=== PATIENT | male | born 2000 | race Caucasian/White ===

== ENCOUNTER 2020-07-19 17:18 | Outpatient (CLI) | payer OTHER, SELFPAY | END 2020-07-19 17:19 | disposition home or self-care (01) | LOC: ANHCOVIDVC 17:18 | PROVIDERS: PCP Family Medicine | DX: Z23 Encounter for immunization (principal) | CPT/HCPCS: 0001A; 91300 ==

== ENCOUNTER 2020-08-09 17:11 | Outpatient (CLI) | payer OTHER, SELFPAY | END 2020-08-09 17:12 | disposition home or self-care (01) | LOC: ANHCOVIDVC 17:12 | PROVIDERS: PCP Family Medicine | DX: Z23 Encounter for immunization (principal) | CPT/HCPCS: 0002A; 91300 ==

== ENCOUNTER 2021-04-25 10:22 | Emergency (ER) | payer OTHER, SELFPAY ==
[2021-04-25 11:19] VITALS: BP 130/78; PULSE 87; RESP 18; TEMP 37.1; O2SAT 100
--- NOTE | 2021-04-25 11:43 | ED.URI ---
HPI - URI/Sore Throat General Chief Complaint: Upper Respiratory Infection Stated Complaint: Lt ear pain,cough Time Seen by Provider: 04/25/21 11:40 Source: patient, family and RN notes reviewed Mode of arrival: ambulatory Limitations: no limitations History of Present Illness HPI Narrative: Roly is a 21-year-old male patient who ambulated into the [facility]. Patient complains of left earache and cough for greater than 1 month. Patient states he was put on a round of antibiotics for 10 days from his primary care physician and did get better. Patient states in the last couple of days his left ear is hurting and when he wakes up in the morning he is coughing. Patient denies any temperature patient denies any other symptoms. Patient states he has not been using any [id number] medications. MD elicited complaint: cough and nasal congestion Related Data Home Medications Medication Instructions Recorded Confirmed aripiprazole 10 mg DAILY 04/25/21 04/25/21 bupropion HCl 150 mg PO DAILY 04/25/21 04/25/21 methylphenidate HCl [Concerta] 36 mg PO DAILY 04/25/21 04/25/21 Allergies Allergy/AdvReac Type Severity Reaction Status Date / Time milk Allergy Verified 04/25/21 11:53 Review of Systems Review of Systems: CONSTITUTIONAL: Denies body aches, fever, chills, or sweats. EYES: Denies visual changes, redness, or discharge. ENT: Denies rhinorrhea, +congestion, sore throat, + left otalgia. CARDIOVASCULAR: Denies chest pain, palpitations, or edema. RESPIRATORY: Denies dyspnea.+ cough GASTROINTESTINAL: Denies abdominal pain, nausea, vomiting, or diarrhea. GENITOURINARY: Denies dysuria or hematuria. SKIN: Denies rash, itching, or wounds. MUSCULOSKELETAL: Denies back pain, joint pain, or myalgia. NEUROLOGIC: Denies headache, numbness, tingling, or weakness. PSYCH: Denies depression or anxiety. All systems reviewed & are unremarkable except as noted in HPI and below PMFSH Comments At time of signature, I have reviewed and agree with nursing past medical, surgical, social and family history unless otherwise noted. Please see nursing chart for further information. There is no relevant family history pertinent to the presenting complaint Exam Narrative: GENERAL: Well-appearing, well-nourished, and in no acute distress. HEAD: Normocephalic, atraumatic. EYES: EOMI. No redness or drainage. Conjunctivae normal. ENT: Mucous membranes pink and moist. Nares clear. No rhinorrhea. Bilateral tympanic membranes are dull and fluid filled. No erythema is noted posterior pharynx is erythemic with mild postnasal drainage noted Uvula midline. NECK: Normal AROM. Supple. No lymphadenopathy. CHEST: No respiratory distress. Clear to auscultation. MUSCULOSKELETAL: No bony tenderness. EXTREMITIES: Normal range of motion. No edema. SKIN: Warm, dry, no rash. Capillary refill normal. Normal skin turgor. NEURO: No focal deficits. Alert and oriented x3. Gait steady. PSYCH: Normal affect. No signs of depression or anxiety. Course Vital Signs Vital signs: Vital Signs Temperature 37.1 C 04/25/21 11:19 Pulse Rate 87 04/25/21 11:19 Respiratory Rate 18 04/25/21 11:19 Blood Pressure 130/78 04/25/21 11:19 Pulse Oximetry 100 04/25/21 11:19 Temperature 37.1 C 04/25/21 11:19 Pulse Rate 87 04/25/21 11:19 Respiratory Rate 18 04/25/21 11:19 Blood Pressure 130/78 04/25/21 11:19 Pulse Oximetry 100 04/25/21 11:19 Reviewed. Pt has been instructed to follow up with his PCP regarding his elevated blood pressure today. MDM - URI/Sore Throat MDM Narrative Medical decision making narrative: Patient has had symptoms off and on for 1 month. Patient was recommended to continue their Zyrtec daily for congestion. Patient will be given prednisone for 5 days. And patient will follow up with his primary care physician after the course is complete for further evaluation. Differential Diagnosis Differential diagnosis:
== END 2021-04-25 12:02 | disposition home or self-care (01) ==
PROVIDERS: Emergency Provider Nurse Practitioner Family; PCP Family Medicine
DX: J06.9 Acute upper respiratory infection, unspecified (principal)
CPT/HCPCS: 99211; G0463

== ENCOUNTER 2023-04-01 08:41 | Emergency (ER) | payer OTHER, SELFPAY ==
[2023-04-01 08:50] VITALS: BP 127/80; PULSE 91; RESP 18; TEMP 36.4; O2SAT 98
--- NOTE | 2023-04-01 08:56 | ED.EAR ---
HPI - Ear Problem General Stated complaint: Lt Ear Irritation Time Seen by Provider: 04/01/23 08:55 Source: patient Mode of arrival: ambulatory Limitations: no limitations History of Present Illness HPI Narrative: Elier is a 23-year-old male patient presenting to the clinic today with complaints of left ear discomfort. He reports he has recently been treated for a left ear infection 3 weeks ago and is still having some pressure in his left ear and is concerned if the infection has gone away. He reports finishing his antibiotic but does not recall antibiotic he was taking. Denies any fever or chills. Related Data Home Medications Medication Instructions Recorded Confirmed aripiprazole 10 mg tablet 10 mg DAILY 04/25/21 04/25/21 bupropion HCl 150 mg 24 hr tablet, 150 mg PO DAILY 04/25/21 04/25/21 extended release methylphenidate HCl 36 mg 36 mg PO DAILY 04/25/21 04/25/21 tablet,extended release 24 hr (Concerta) Allergies Allergy/AdvReac Type Severity Reaction Status Date / Time milk Allergy Verified 04/25/21 11:53 Review of Systems Review of Systems: Pertinent positives per HPI. Patient denies any fever, chills, rash, headache, visual changes, dizziness, cough, runny nose, sore throat, shortness of breath, chest pain, palpitations, nausea, vomiting, diarrhea, constipation, abdominal pain, or any urinary issues. PMFSH Comments At the time of my signature, I reviewed and agree with the nursing past medical, surgical, social, and family history. There is no relevant family history pertinent to the patient complaint. Exam Narrative: General: Well-developed, well nourished, in no apparent distress Head: Normocephalic, atraumatic Eyes: Pupils equally round and reactive to light bilaterally, EOM intact, sclera and conjunctive clear, no discharge, lids normal Ears: Right tMs intact and clear, left TM intact, clear, with very mild bulging, ear canals clear, no drainage, grossly hearing normal. Nose: Nares patent, clear discharge, no inflammation, no sinus tenderness. Mouth: Oropharynx without lesions or masses, good dentition, MMM. Neck: Supple, trachea midline, no enlargement of anterior or posterior cervical nodes, no thyroid masses or goiter palpable. Cardio: Regular rate and rhythm, s1 and s2 normal, no murmur appreciated. Resp: Clear to auscultation bilaterally anteriorly and posteriorly, no rhonchi, rales, wheezing or rubs Course Course Emergency Course: Portions of this record may have been created with voice recognition software. Level of Care: Express Care Visit Vital Signs Vital signs: Vital signs reviewed Medical Decision Making MDM Narrative Medical decision making narrative: At the time of visit patient is resting comfortably on the exam table. I suspect patient has eustachian tube dysfunction to the left ear. Discussed using Flonase and [id number] antihistamines. Supportive measures were discussed with the patient he voiced understanding discharge instructions and agrees to treatment plan. Differential Diagnosis Differential Diagnosis: Otitis media, otitis externa, eustachian tube dysfunction, cerumen impaction, Discharge Plan Discharge Clinical Impression: ETD (eustachian tube dysfunction) Qualifiers: Laterality: left Qualified Code(s): H69.92 - Unspecified Eustachian tube disorder, left ear Patient Disposition: Home, Self-Care Condition: Stable Instructions: Antibiotic Form, Earache (ED) Additional Instructions: Ear infection appears to be resolved. Increase fluids and stay well hydrated Tylenol/motrin for pain/fever Flonase and OTC antihistamines such as Zyrtec or Claritin as directed Vicks vapor rub to open sinuses Sinus rinses for congestion Cepacol spray, cough drops, throat lozenges, warm tea with honey/lemon, gargle salt water to soothe throat BRAT diet for diarrhea Clear liquids x 24 hours then advance as tolerated for nausea
== END 2023-04-01 09:09 | disposition home or self-care (01) ==
PROVIDERS: Emergency Provider Nurse Practitioner Family; PCP Family Medicine
DX: H69.92 Unspecified Eustachian tube disorder, left ear (principal)
CPT/HCPCS: 99211; G0463

== ENCOUNTER 2023-06-27 10:35 | Emergency (ER) | payer OTHER, SELFPAY ==
[2023-06-27 10:45] VITALS: BP 131/79; PULSE 80; RESP 16; TEMP 36.6; O2SAT 98
[2023-06-27 10:49] VITALS: BP 131/79; PULSE 80; RESP 16; TEMP 36.6; O2SAT 98
--- NOTE | 2023-06-27 11:12 | ED.BACK ---
HPI - Back Pain/Injury General Chief Complaint: Back Pain/Injury Stated Complaint: Back and Left Hip Pain Time Seen by Provider: 06/27/23 11:12 Source: patient, RN notes reviewed and old records reviewed Mode of arrival: ambulatory Limitations: no limitations History of Present Illness HPI Narrative: 23-year-old male presents to the [facility] complaints left and lower pain for 3 days. Has taken ibuprofen States that he lifts 30 lb dog food Denies any trauma, no falls Denies any loss retention of bowel or. Denies urinary symptoms. Denies abdominal pain. No numbness or tingling in extremities. Walks a Treatments prior to arrival: NSAIDS Related Data Home Medications Medication Instructions Recorded Confirmed aripiprazole 10 mg tablet 10 mg PO HS 04/25/21 06/27/23 bupropion HCl 150 mg 24 hr tablet, 150 mg PO DAILY 04/25/21 06/27/23 extended release buspirone 5 mg tablet 5 mg PO BID 06/27/23 06/27/23 divalproex 250 mg tablet,delayed 250 mg PO DAILY 06/27/23 06/27/23 release Allergies Allergy/AdvReac Type Severity Reaction Status Date / Time milk AdvReac Intermediate Gastrointestinal Verified 06/27/23 10:46 Upset Review of Systems Review of Systems: All systems reviewed & are unremarkable except as noted in HPI and below Constitutional: Constitutional: Reports no additional constitutional complaints Eyes: Eyes: Reports no additional eye complaints ENT: Reports system reviewed and no additional complaints, except as documented Cardiovascular: Cardiovascular: Reports no additional cardiovascular complaints, Denies chest pain and Denies dyspnea Respiratory: Respiratory: Reports no additional respiratory complaints, Denies chest congestion, Denies cough and Denies dyspnea Gastrointestinal: Gastrointestinal: Reports no additional gastrointestinal complaints, Denies abdominal pain, Denies nausea and Denies vomiting Musculoskeletal: Musculoskeletal: Reports as per HPI and Reports back pain (left lower) Integumentary/Breasts: Skin/Breast: Reports system reviewed and no additional complaints, except as docu Neurologic: Reports system reviewed and no additional complaints, except as documented Psychiatric: Psychiatric: Reports no additional psychiatric complaints Allergic/Immunologic: Allergic/Immunologic: Reports no additional allergic/immunologic complaints PMFSH Comments At the time of my signature, I reviewed and agree with the nursing past medical, surgical, social, and family history. There is no relevant family history pertinent to the patient complaint. Exam Const: General: cooperative, healthy appearing, comfortable, no acute distress, well developed, alert and well nourished Nutritional Appearance: well nourished Orientation/consciousness: patient oriented x3 Limitations: no limitations HENMT: Head: normal to inspection Ears: hearing grossly normal bilaterally and external ears normal Face/Nose/Sinus: Normal external nose present, Normal nares present, Normal nasal mucous membranes and turbinates present, normal facial exam and face symmetric Face and sinus: normal facial exam and face symmetric Eyes: General: appearance normal, both eyes and all related structures Alignment and Position: alignment normal Periorbital: periorbital findings normal Pupils: Equal, round and reactive pupils present EOM: EOMs intact bilaterally Neck: Neck: normal visual inspection, full ROM, no lymphadenopathy and no meningeal signs Chest: Chest palpation & inspection: normal inspection of the chest Resp: Effort & Inspection: normal respiratory effort and able to speak in complete sentences Cardio: Rate: regular rate GI: GI Palp: No abdominal tenderness : General: Yes no CVA tenderness Back/Spine/Pelvis: Back: No erythema, No ecchymosis and back tenderness Cervical Spine: cervical ROM normal, No cervical muscular tenderness and No Cervical spine tenderness Thoracic/Lumbar Spine: paraspinal muscle t
== END 2023-06-27 11:32 | disposition home or self-care (01) ==
PROVIDERS: Emergency Provider Nurse Practitioner
DX: S39.012A Strain of muscle, fascia and tendon of lower back, initial encounter (principal); X50.0XXA Overexertion from strenuous movement or load, initial encounter; F41.9 Anxiety disorder, unspecified; F32.A Depression, unspecified
CPT/HCPCS: 99213; G0463

== ENCOUNTER 2023-07-31 09:14 | Emergency (ER) | payer OTHER, SELFPAY ==
--- NOTE | 2023-07-31 09:18 | ED.URI ---
HPI - URI/Sore Throat General Chief Complaint: Upper Respiratory Infection Stated Complaint: cough,chest congestion Time Seen by Provider: 07/31/23 10:05 Source: patient, RN notes reviewed and old records reviewed Mode of arrival: ambulatory Limitations: no limitations History of Present Illness HPI Narrative: 23-year-old male presents to the [facility] with complaints cough for approximately 1 and half weeks. Has tried DayQuil and NyQuil. Denies any other symptoms. Denies fevers, chest pain, shortness Onset (ago): week(s) (1.5) Related Data Home Medications Medication Instructions Recorded Confirmed aripiprazole 10 mg tablet 10 mg PO HS 04/25/21 06/27/23 divalproex 250 mg tablet,delayed 250 mg PO DAILY 06/27/23 06/27/23 release cyanocobalamin (vitamin B-12) mcg 07/31/23 1,000 mcg tablet lumateperone 42 mg capsule mg PO 07/31/23 (Caplyta) Allergies Allergy/AdvReac Type Severity Reaction Status Date / Time milk AdvReac Intermediate Gastrointestinal Verified 07/31/23 09:47 Upset Review of Systems Review of Systems: All systems reviewed & are unremarkable except as noted in HPI and below Constitutional: Constitutional: Reports no additional constitutional complaints Eyes: Eyes: Reports no additional eye complaints ENT: Reports system reviewed and no additional complaints, except as documented Cardiovascular: Cardiovascular: Reports no additional cardiovascular complaints, Denies chest pain and Denies dyspnea Respiratory: Respiratory: Reports as per HPI, Denies chest congestion, Reports cough and Denies dyspnea Gastrointestinal: Gastrointestinal: Reports no additional gastrointestinal complaints, Denies abdominal pain, Denies nausea and Denies vomiting Musculoskeletal: Musculoskeletal: Reports no additional musculoskeletal complaints Integumentary/Breasts: Skin/Breast: Reports system reviewed and no additional complaints, except as docu Neurologic: Reports system reviewed and no additional complaints, except as documented Psychiatric: Psychiatric: Reports no additional psychiatric complaints Allergic/Immunologic: Allergic/Immunologic: Reports no additional allergic/immunologic complaints PMFSH Comments At the time of my signature, I reviewed and agree with the nursing past medical, surgical, social, and family history. There is no relevant family history pertinent to the patient complaint. Exam Const: General: cooperative, healthy appearing, comfortable, no acute distress, well developed, alert and well nourished Nutritional Appearance: well nourished Orientation/consciousness: patient oriented x3 Limitations: no limitations HENMT: Head: normal to inspection Ears: hearing grossly normal bilaterally, external ears normal, TM's normal bilaterally, EAC's normal, mastoids normal and no periauricular adenopathy Face/Nose/Sinus: Normal external nose present, Normal nares present, Normal nasal mucous membranes and turbinates present, normal facial exam and face symmetric Face and sinus: normal facial exam and face symmetric Mouth: Yes Normal oral and palatal mucosa present, Yes lip normal and Yes moist mucous membranes Throat: posterior oropharynx normal, uvula midline and postnasal drainage (thick white/ clear) Eyes: General: appearance normal, both eyes and all related structures Alignment and Position: alignment normal Periorbital: periorbital findings normal Pupils: Equal, round and reactive pupils present EOM: EOMs intact bilaterally Neck: Neck: normal visual inspection, full ROM, no lymphadenopathy and no meningeal signs Chest: Chest palpation & inspection: normal inspection of the chest Resp: Effort & Inspection: normal respiratory effort and able to speak in complete sentences Auscultation: clear to auscultation bilaterally, no crackles, no rales, no rhonchi and no wheezes Cardio: Rate: regular rate Rhythm: regular rhythm Back/Spine/Pelvis: Cervical Spine: cervical ROM normal
[2023-07-31 09:27] VITALS: BP 119/74; PULSE 87; RESP 18; TEMP 36.6; O2SAT 97
== END 2023-07-31 10:22 | disposition home or self-care (01) ==
PROVIDERS: Emergency Provider Nurse Practitioner; PCP Family Medicine
DX: R09.82 Postnasal drip (principal); J06.9 Acute upper respiratory infection, unspecified
CPT/HCPCS: 99211; G0463

== ENCOUNTER 2023-10-21 19:28 | Emergency (ER) | payer OTHER, SELFPAY ==
[2023-10-21 19:36] VITALS: BP 147/71; PULSE 73; RESP 20; TEMP 36.3; O2SAT 99
--- NOTE | 2023-10-21 19:37 | ED.SKABFB ---
HPI - Skin/Abscess/Foreign Bdy General Chief complaint: Skin/Abscess/Foreign Body Stated complaint: POISON DARON Time Seen by Provider: 10/21/23 19:38 Source: patient, RN notes reviewed and old records reviewed Mode of arrival: ambulatory Limitations: no limitations History of Present Illness HPI narrative: 23 year old male presents to [facility] care with complaints of poison daron rash for the past 2 weeks with rash noted to his bilateral arms and his legs. patient reports that he has used special soap for poison daron and also has used Caladryl lotion without resolution in his symptoms. Patient reports that his rash continues to be very itchy. Patient denies any difficulty with his breathing or with his swallowing. MD complaint: other (exposure to poison Daron) Onset (ago): week(s) (2) Location: LUE, RUE, LLE and RLE Quality: pruritic Treatments prior to arrival: OTC topical medication and other (special soap for poison daron) Related Data Home Medications Medication Instructions Recorded Confirmed divalproex 250 mg tablet,delayed 250 mg PO DAILY 06/27/23 10/21/23 release cyanocobalamin (vitamin B-12) 1,000 mcg PO DAILY 07/31/23 10/21/23 1,000 mcg tablet aripiprazole 20 mg tablet 20 mg PO DAILY 10/21/23 10/21/23 bupropion HCl 150 mg 24 hr tablet, 150 mg PO DAILY 10/21/23 10/21/23 extended release buspirone 5 mg tablet 5 mg PO DAILY 10/21/23 10/21/23 lumateperone 42 mg capsule 42 mg PO DAILY 10/21/23 10/21/23 (Caplyta) Allergies Allergy/AdvReac Type Severity Reaction Status Date / Time milk AdvReac Intermediate Gastrointestinal Verified 10/21/23 19:45 Upset Review of Systems Review of Systems: CONSTITUTIONAL: Denies fever, chills, or sweats. CARDIOVASCULAR: Denies chest pain, palpitations, or edema. RESPIRATORY: Denies cough or dyspnea. SKIN: Reports rash and itching to legs and arms for 2 week duration MUSCULOSKELETAL: Denies joint pain or myalgia. NEUROLOGIC: Denies headache, numbness, or weakness. All systems reviewed & are unremarkable except as noted in HPI and below PMFSH Past Medical History Medical History Anxiety and depression Bronchitis Lactose intolerance Social History Social History Smoking status: Never smoker Alcohol intake: never Substance use: never Living arrangements: with family Gender identity (if verbalized by the patient): Male Comments At time of signature, agree with nursing past medical, surgical, social and family history. There is no relevant family history pertinent to the presenting complaint Exam Narrative: GENERAL: Well-appearing, well-nourished, and in no acute distress. HEAD: Normocephalic, atraumatic. EYES: PERRLA, conjunctivae clear, and EOMI. ENT: Mucous membranes moist. Oropharynx without edema, erythema or lesions. NECK: Supple. No lymphadenopathy CHEST: Clear to auscultation. No respiratory distress.SAO2 99% on room air HEART: Regular rate and rhythm. SKIN: Warm, dry.? Patches of erythema and edema with red raised rash noted to his bilateral forearms and legs which is itchy with no improvement with use of OTC medications NEURO:? Alert and oriented x3. PSYCH: Normal mood and affect Course Course Emergency Course: Patient is aware of diagnosis, understands and agrees to treatment plan.? Anticipatory guidance given.? Patient agrees to follow-up as directed and is aware of reasons to seek care at the emergency department. Portions of this record may have been created with voice recognition software Level of Care: Express Care Visit Vital Signs Vital signs: Vital Signs Temperature 36.3 C L 10/21/23 19:36 Pulse Rate 73 10/21/23 19:36 Respiratory Rate 20 10/21/23 19:36 Blood Pressure 147/71 H 10/21/23 19:36 Pulse Oximetry 99 10/21/23 19:36 Oxygen Delivery Room Air 10/21/23 19:36 [place]
== END 2023-10-21 19:55 | disposition home or self-care (01) ==
PROVIDERS: Emergency Provider Registered Nurse; PCP Family Medicine
DX: L25.5 Unspecified contact dermatitis due to plants, except food (principal); F41.9 Anxiety disorder, unspecified; F32.A Depression, unspecified
CPT/HCPCS: 99213; G0463

== ENCOUNTER 2023-11-25 08:20 | Emergency (ER) | payer OTHER, SELFPAY ==
--- NOTE | 2023-11-25 08:25 | ED.GENADULT ---
HPI - General Adult General Chief complaint: Upper Respiratory Infection Stated complaint: coughing + vomiting Time Seen by Provider: 11/25/23 08:25 Source: patient, RN notes reviewed and old records reviewed Mode of arrival: ambulatory Limitations: no limitations History of Present Illness HPI narrative: 23-year-old male to Express Care for complaint of cough, postnasal drainage and vomiting for approximately 2 weeks. Patient states that symptoms initially began as a sore throat that has resolved. Patient states his cough has been productive 1 time with yellow to green sputum. Patient states he believes that the vomiting is due to the postnasal drainage. Patient denies fever, abdominal pain, diarrhea, constipation, sore throat, headache , shortness of breath, chest pain. Patient able to tolerate fluids by mouth. Patient endorses recent discharge from [facility] for suicidal ideation. Patient states that he is going into residential and would like to get better before going. Patient denies SI or HI at this time. Respirations even and nonlabored. Patient able to speak in full sentences without difficulty. Patient in no acute distress Related Data Home Medications Medication Instructions Recorded Confirmed aripiprazole 20 mg tablet 15 mg PO DAILY 10/21/23 10/21/23 cetirizine 10 mg tablet mg 11/25/23 fluticasone propionate 50 intranasal 11/25/23 mcg/actuation nasal spray,suspension Allergies Allergy/AdvReac Type Severity Reaction Status Date / Time milk AdvReac Intermediate Gastrointestinal Verified 11/25/23 08:32 Upset Review of Systems Review of Systems: All systems reviewed & are unremarkable except as noted in HPI and below Constitutional: Constitutional: Reports as per HPI, Denies body ache(s), Denies chills and Denies fever(s) Eyes: Eyes: Reports no additional eye complaints ENT: Reports system reviewed and no additional complaints, except as documented Cardiovascular: Cardiovascular: Reports no additional cardiovascular complaints, Denies chest pain and Denies dyspnea Respiratory: Respiratory: Reports no additional respiratory complaints, Reports cough and Denies dyspnea Gastrointestinal: Gastrointestinal: Reports as per HPI, Reports nausea and Reports vomiting Musculoskeletal: Musculoskeletal: Reports no additional musculoskeletal complaints Neurologic: Reports system reviewed and no additional complaints, except as documented Psychiatric: Psychiatric: Reports no additional psychiatric complaints PMFSH Past Medical History Medical History Anxiety and depression Bronchitis Lactose intolerance Social History Social History Smoking status: Never smoker Alcohol intake: never Substance use: never Living arrangements: with family Gender identity (if verbalized by the patient): Male Comments At the time of my signature, I reviewed and agree with the nursing past medical, surgical, social, and family history. There is no relevant family history pertinent to the patient complaint. Exam Const: General: cooperative, no acute distress, alert, tired appearing and well nourished Nutritional Appearance: well nourished Orientation/consciousness: patient oriented x3 Limitations: no limitations HENMT: Head: normal to inspection Ears: external ears normal and TM abnormal bulging on the left, erythematous on the left, with fluid behind the TM bilateral and with loss of landmarks on the left Face/Nose/Sinus: Normal external nose present, Normal nares present, normal facial exam, No erythema and No edema Face and sinus: normal facial exam, no erythema and no edema Mouth: Yes Normal oral and palatal mucosa present Throat: posterior oropharynx abnormal erythema and postnasal drainage Eyes: General: appearance normal, both eyes and all related structures Neck:
[2023-11-25 08:31] VITALS: BP 127/72; PULSE 68; RESP 18; TEMP 36.4; O2SAT 98
[2023-11-25 08:33] VITALS: BP 127/72; PULSE 68; RESP 18; TEMP 36.4; O2SAT 98
== END 2023-11-25 08:49 | disposition home or self-care (01) ==
PROVIDERS: Emergency Provider Nurse Practitioner Family; PCP Family Medicine
DX: H66.92 Otitis media, unspecified, left ear (principal)
CPT/HCPCS: 99213; G0463

== ENCOUNTER 2024-03-31 08:39 | Emergency (ER) | payer OTHER, SELFPAY ==
--- NOTE | 2024-03-31 08:41 | ED_ITS ---
HPI - Back Pain/Injury General Chief Complaint: Back Pain/Injury Stated Complaint: Lower Back Pain Time Seen by Provider: 03/31/24 08:40 Source: patient Mode of arrival: ambulatory Limitations: no limitations History of Present Illness HPI Narrative: Roly is a 24-year-old male patient presenting to the clinic today with complaints of left-sided upper back pain times 5-7 days. He reports pain is a squeezing/burning sensation to the left upper back that is radiating up into his shoulder as well as in to his left lateral side. Denies any chest pain or shortness of breath. Denies any injury. Does spend a lot of time at a desk typing. Rates his pain currently a 5/10. Pain is worse with movement and when keeping his arm up Related Data Home Medications Medication Instructions Recorded Confirmed aripiprazole 20 mg tablet 15 mg PO DAILY 10/21/23 03/31/24 atorvastatin 40 mg tablet 40 mg DIRECTED 03/31/24 03/31/24 bupropion HCl 150 mg 24 hr tablet, 150 mg PO DIRECTED 03/31/24 03/31/24 extended release (Wellbutrin XL) famotidine 20 mg tablet 20 mg DIRECTED 03/31/24 03/31/24 lithium carbonate 300 mg 300 mg PO DIRECTED 03/31/24 03/31/24 tablet,extended release Allergies Allergy/AdvReac Type Severity Reaction Status Date / Time milk AdvReac Intermediate Gastrointestinal Verified 11/25/23 08:32 Upset Review of Systems Review of Systems: Pertinent positives per HPI. Patient denies any fever, chills, rash, headache, visual changes, dizziness, cough, runny nose, sore throat, shortness of breath, chest pain, palpitations, nausea, vomiting, diarrhea, constipation, abdominal pain, or any urinary issues. [facility] Past Medical History Medical History Anxiety and depression Bronchitis Lactose intolerance Social History Social History Smoking status: Never smoker Alcohol intake: never Substance use: never Living arrangements: with family Gender identity (if verbalized by the patient): Male Comments At the time of my signature, I reviewed and agree with the nursing past medical, surgical, social, and family history. There is no relevant family history pertinent to the patient complaint. Exam Narrative: General: Well-developed, well nourished, in no apparent distress Head: Normocephalic, atraumatic. Cardio: Regular rate and rhythm, s1 and s2 normal, no murmur appreciated. Resp: Clear to auscultation bilaterally, no rhonchi, rales, wheezing or rubs. Musculoskeletal: No deformity, tender to palpation over the left rhomboid musculature, pain with moving his arm and then holding it still and at work position over the left rhomboid, grossly normal range of motion, muscle strength strong and equal in BLE. SLT negative, patellar reflexes 2/4 bilaterally, negative foot drop, normal gait and station Course Course Emergency Course: Portions of this record may have been created with voice recognition software. Level of Care: Express Care Visit Vital Signs Vital signs: Vital Signs Temperature 36.6 C 03/31/24 08:50 Pulse Rate 81 03/31/24 08:50 Respiratory Rate 18 03/31/24 08:50 Blood Pressure 119/78 03/31/24 08:50 Pulse Oximetry 99 03/31/24 08:50 Oxygen Delivery Room Air 03/31/24 08:50 Temperature 36.6 C 03/31/24 08:50 Pulse Rate 81 03/31/24 08:50 Respiratory Rate 18 03/31/24 08:50 Blood Pressure 119/78 03/31/24 08:50 Pulse Oximetry 99 03/31/24 08:50 Oxygen Delivery Room Air 03/31/24 08:50 Vital signs reviewed MDM - Back Pain/Injury MDM Narrative Medical decision making narrative: At the time of visit patient is resting comfortably on the exam table. Patient appears to be nontoxic. Labs: Urinalysis shows trace of intact blood. No sign of infection. Patient states that this is normal for him Plan: I suspect patient has a left rhomboid strain. Prescription for naproxen and baclofen was sent to the pharmacy. Supportive measures were discussed with the patient and they voiced understanding discharge instructions and agrees to treatment plan. Return precautions reviewed Differential Diagnosis Differential diagnosis: Likely lumbar radiculopathy, sciatica, strain of lumbar region, renal colic, pyelonephritis, thoracic back pain, discitis and other (Rhomboid muscle strain) Lab Data Labs: Lab Results 03/31/24 Range/Units 09:09 POC Urine Color Yellow POC Urine Clarity Clear POC Urine pH 6.0 POC Ur Specif [place] 1.025 POC Urine Protein Negative (Negative) POC Ur Glucose (UA) Negative (Negative) POC Urine Ketones Negative (Negative) POC Urine Blood Trace (Negative) POC Urine Nitrite Negative (Negative) POC Urine Bilirubin Negative (Negative) POC Urine Urobilinogen 0.2 POC U Leukocyte Esteras Negative (Negative) Discharge Plan Discharge Clinical Impression: Pain in left rhomboid muscle Patient Disposition: Home, Self-Care Condition: Stable Instructions: Antibiotic Form, Muscle Strain (ED), Back Pain (ED) Additional Instructions: Take any prescription medication only as prescribed-naproxen and baclofen Be mindful of sedation precautions given to you if taking a muscle relaxer. May use heat or ice to the affected area Consider massage or chiropractor adjustment if this was discussed with provider May use blue emu, lidocaine patches, or asper cream to affected area- do not apply heat or ice directly over cream- can cause burn. Complete appropriate rhomboid muscle stretching exercises. Follow up with your PCP in 3-5 days if symptom persist. Prescriptions: New naproxen 500 mg tablet 500 mg PO BID PRN (Reason: pain) 7 Days Qty: 14 0RF baclofen 10 mg tablet 10 mg PO TID PRN (Reason: muscle spasm) 3 Days Qty: 10 0RF No Action atorvastatin 40 mg tablet 40 mg DIRECTED lithium carbonate 300 mg tablet extended release 300 mg PO DIRECTED famotidine 20 mg tablet 20 mg DIRECTED bupropion HCl [Wellbutrin XL] 150 mg tablet extended release 24 hr 150 mg PO DIRECTED aripiprazole 20 mg tablet 15 mg PO DAILY Follow-up/Referrals: Roselia,Ricky Burgos MD [Primary Care Provider] - Time of Disposition: :22 Quality NIHSS Nursing Documentation ED NIHSS nursing documentation: reviewed/agree
[2024-03-31 08:50] VITALS: BP 119/78; PULSE 81; RESP 18; TEMP 36.6; O2SAT 99
[2024-03-31 09:11] LABS: EDUAAPPEAR Clear; EDUABILI Negative (Negative); EDUABLOOD Trace (Negative); EDUACOLOR1 Yellow; EDUAGLUCOSE Negative (Negative); EDUAKETONE Negative (Negative); EDUALEUKO Negative (Negative); EDUANITRATE Negative (Negative); EDUAPROTEIN Negative (Negative); EDUASPGRAVITY 1.025; EDUAUROBILI 0.2
== END 2024-03-31 09:29 | disposition home or self-care (01) ==
PROVIDERS: Emergency Provider Nurse Practitioner Family; PCP Family Medicine
DX: M54.6 Pain in thoracic spine (principal); F41.9 Anxiety disorder, unspecified; F32.A Depression, unspecified
CPT/HCPCS: 81003; 99213; G0463

== ENCOUNTER 2025-01-19 13:43 | Emergency (ER) | payer OTHER, SELFPAY ==
--- OUTSIDE RECORDS SUMMARY | 2025-01-19 13:45 | XMS_ITS | Clinical Summary ---
Author Organization [facility] Address [address] [place] [address] Care Team Providers Care Retail Service Specialist Name Role Phone Unavailable Primary Care Provider Unavailabl e Source Comments [facility],non-owned Affiliates and Associated Physician Practices is amultiple site organization consisting of ambulatory clinics and hospital sitesin [place], [place], [place] and [place]. This disclosure is being madepursuant to the Care Everywhere program and may not contain all information available regarding this patient. Last updated 18.[facility] Allergies Active Allergy Reactions Criticality Noted Date Comments Lactose GI Discomfort Low 01/11/2015 Cant drink raw milk Escitalopram TATTOO AND BODY ARTIST Dysfunction High 01/11/2015 Cause patient to have eyes bug out of head and cause arms to become stiff Medications * This document contains information received from the source organization and may not represent a complete record from that organization. * Be aware that medications may not be up to date on this document. Alwaysverify current medications with the patient. PARoxetine (PAXIL) 20 MG tabletIndicatio ns:Major Depressive Disorder Take 1 Tab by mouth at bedtime Reasons: Major Depressive Disorder 30 Tab 1 5 Active OLANZapine, disintegrating, (ZYPREXA ZYDIS) 5 MG tabletIndicatio ns:Major Depressive Disorder Take 1 Tab by mouth at bedtime Reasons: Major Depressive Disorder 30 Tab 1 5 Active Active Problems Problem Noted Date Diagnosed Date Suicidal ideation 01/14/2015 Family History Medical History Relation Name Comments Depression Father Depression Maternal Grandfather Bipolar Disorder Maternal Grandmother Depression Maternal Grandmother Depression Mother Depression Paternal Grandfather Depression Paternal Grandmother Relation Name Status Comments Father Maternal Grandfather Maternal Grandmother Mother Paternal Grandfather Paternal Grandmother Social History Tobacco Use Types Packs/Day Years Used Date Smoking Tobacco: Never Smokeless Tobacco: Never Alcohol Use Standard Drinks/Week Comments No 0 (1 standard drink = 0.6 oz pur e alcohol) Sex and Gender Information Value Date Recorded Sex Assigned at Not on file Legal Sex Male 5:08 PM CDT Gender Identity Not on file Sexual Orientation Not on file Last Filed Vital Signs Vital Sign Reading Time Taken Comments Blood Pressure 145/76 01/21/2015 2:51 PM CDT Pulse 102 01/21/2015 2:51 PM CDT Temperature 36.7 C (98 F) 01/21/2015 2:51 PM CDT Respiratory Rate 16 01/21/2015 2:51 PM CDT Oxygen Saturation 99% 01/21/2015 2:51 PM CDT Inhaled Oxygen Concentration - - Weight 63.5 kg (140 lb) 01/11/2015 11:20 PM CDT Height 170 cm (5' 6.93) 01/11/2015 11:20 PM CDT Body Mass Index 21.97 01/11/2015 11:20 PM CDT Plan of Treatment Health Maintenance Due Date Last Done Comments HIV SCREENING 2014 HPV VACCINE (1 - Male 3-dose series) 2014 HEPATITIS C SCREENING 01/23/2017 DTAP/TDAP/TD VACCINES (1 - Tdap) 2018 HEPATITIS B VACCINE (1 of 3 - 19+ 3-dose series) 2018 DEPRESSION SCREENING 05/03/2024 COVID-19 VACCINE (1 - 2023-2 5 season) 2025 INFLUENZA VACCINE (#1) 2025 ZOSTER VACCINE (1 of 2) 2049 HIB VACCINE Aged Out No longer eligi ble based on patient's age to complete this topic MENINGOCOCCAL (Group B) VACC INE SHARED DECISION-MAKING Aged Out No longer eligibl e based on patient's age to complete this topic MENINGOCOCCAL GROUPS A/C/Y/W VACCINE Aged Out No longer eligible b ased on patient's age to complete this topic PNEUMOCOCCAL VACCINE Aged Out No long er eligible based on patient's age to complete this topic Insurance AETNA AETNA Advance Directives * Full Code (Latest Code Status on File) Date Activated Date Inactivated Comments 01/11/2015 11:59 PM 01/21/2015 5:42 PM
--- OUTSIDE RECORDS SUMMARY | 2025-01-19 13:45 | XMS_ITS | Clinical Summary ---
Author Organization [facility] Address [address] [place] [address] Care Team Providers Care Electronics System Mechanic Name Role Phone Unavailable Primary Care Provider Unavailabl e Social History Tobacco Use Types Packs/Day Years Used Date Smoking Tobacco: Never Assessed Sex and Gender Information Value Date Recorded Sex Assigned at Not on file Legal Sex Male 8:06 PM CDT Gender Identity Not on file Sexual Orientation Not on file Plan of Treatment Health Maintenance Due Date Last Done Comments Annual Physical 2002 HPV Vaccines (1 - Male 3-dos e series) 2014 Hepatitis C 2017 DTaP, Tdap and Td Vaccines ( 1 - Tdap) 2018 Hepatitis B Vaccines (1 of 3 - 19+ 3-dose series) 2018 COVID-19 Vaccine (1 - 2023-2 5 season) 2025 Meningococcal B Vaccine Aged Out No l onger eligible based on patient's age to complete this topic Meningococcal Vaccine Aged Out No balbir yoni eligible based on patient's age to complete this topic Pneumococcal Vaccine: Pediat rics (0 to 5 Years) and At-Risk Patients (6 to 49 Years) Aged Out No longer eligible b ased on patient's age to complete this topic RSV Immunizations Under 20 Months Aged Out No longer eligible based on patient's age to complete this topic
--- OUTSIDE RECORDS SUMMARY | 2025-01-19 13:45 | XMS_ITS | Clinical Summary ---
Author Organization [facility] Address [address] [place] [address] Phone Care Team Providers Care Operator Coating Furnace Name Role Phone Ricky Carter DO Primary Care Provider [phone] Allergies Active Allergy Reactions Criticality Noted Date Comments Escitalopram Anxiety Low 01/11/2015 Medications buPROPion HCl (WELLBUTRIN XL) 150 mg Extended Release 24 hour tablet Take 1 Tablet (150 mg) by mouth daily after breakfast. 30 Tablet 1 09/26/2015 Active PARoxetine HCl (PAXIL) 20 mg tabletIndication s:depression Take 1 Tablet (20 mg) by mouth daily after supper. 30 Tablet 1 09/26/2015 Active ARIPiprazole (ABILIFY) 15 mg tablet Take 1 Tablet (15 mg) by mouth daily at bedtime. 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 01/11/2015 Medication reaction 05/12/2014 Autism spectrum disorder Family History Medical History Relation Name Comments Hypertension Father Bone Cancer Maternal Grandfather Breast Cancer Maternal Grandmother Heart Disease Maternal Grandmother Anxiety Mother Depression Mother Heart Disease Mother congestive hea rt failure High Cholesterol Mother Hypertension Mother Other Mother fibromyalgia Heart Attack Paternal Grandfather Relation Name Status Comments Father Alive Maternal Grandfather Maternal Grandmother Mother Alive Paternal Grandfather Paternal Grandmother Alive Sister Alive Social History Tobacco Use Types Packs/Day Years Used Date Smoking Tobacco: Never Smokeless Tobacco: Never Alcohol Use Standard Drinks/Week Comments No 0 (1 standard drink = 0.6 oz pur e alcohol) Sex and Gender Information Value Date Recorded Sex Assigned at Not on file Legal Sex Male 4:08 PM CEMENT PATCHER Gender Identity Not on file Sexual Orientation Not on file Occupation Industry Job Start Date Job End Date Not on file Not on file Not on file Not on file Last Filed Vital Signs Vital Sign Reading Time Taken Comments Blood Pressure 124/69 09/26/2015 6:35 AM CDT Pulse 88 09/26/2015 6:35 AM CDT Temperature 36.8 C (98.3 F) 09/26/2015 6:35 AM CDT Respiratory Rate 16 09/26/2015 6:35 AM CDT Oxygen Saturation 98% 09/26/2015 6:35 AM CDT Inhaled Oxygen Concentration - - Weight 92.5 kg (204 lb) 09/22/2015 12:00 PM CDT Height 167.6 cm (5' 6) 09/12/2015 11:08 PM CDT Body Mass Index 31.64 09/12/2015 11:08 PM CDT Plan of Treatment Health Maintenance Due Date Last Done Comments HPV VACCINES (1 - Male 3-dose series) 2014 DTAP/TDAP/TD VACCINES (1 - Tdap) 2018 HEPATITIS B VACCINES (1 of 3 - 19+ 3-dose series) 01/02 INFLUENZA VACCINE (#1) 2024 Advance Directives For more information, please contact: [phone] * Full Code (Latest Code Status on File) Date Activated Date Inactivated Comments 09/12/2015 10:58 PM 09/26/2015 3:37 PM Care Teams Operator Coating Furnace Relationship Specialty Start Date End Date Ricky Carter DO PCP - General Family Practice 05/12/14
--- OUTSIDE RECORDS SUMMARY | 2025-01-19 13:46 | XMS_ITS | Clinical Summary ---
Author Organization [facility] Office Center Address [address] [place] [address] Care Team Providers Care Molecular Genetic Pathologist Name Role Phone Ricky Veloz DO Primary Care Provider + Allergies Active Allergy Reactions Criticality Noted Date Comments Escitalopram Anxiety,Other (See comments) High 01/11/2015 Cause patient to have eyes bug out of head and cause arms to become stiff Lactose Stomach upset Low 01/11/2015 Cant drink raw milk Medications ARIPiprazole (ABILIFY) 15 mg tabletIndicati ons:Depression Treatment Adjunct Take 1 tablet (15 mg total) by mouth daily 30 tablet 2 4 03/01/20 25 Active loratadine (CLARITIN) 10 mg tablet Take 1 tablet (10 mg total) by mouth daily Active atorvastatin (LIPITOR) 40 mg tablet Take 1 tablet (40 mg total) by mouth daily 4 Active buPROPion XL (WELLBUTRIN XL) 150 mg 24 hr tablet Take 1 tablet (150 mg total) by mouth every morning 4 Active famotidine (PEPCID) 20 mg tablet Take 1 tablet (20 mg total) by mouth daily 4 Active lithium ER (LITHOBID) 300 mg CR tablet Take 1 tablet (300 mg total) by mouth 2 (two) times a day 5 Active traZODone (DESYREL) 50 mg tablet Take 1 tablet (50 mg total) by mouth nightly as needed for sleep 10/2412/23/19 25 Discontinued Active Problems Problem Noted Date Diagnosed Date Increased liver enzymes 11/09/2023 Assessment & Plan (11/09/2023 12:38 PM CDT): Prior CT scan showed a normal liver. Denies alcohol use. Takes Tylenol 1 to 2 times per month, with the last dose around 1 month ago, not exceeding 2 g in 24 hours. - Unclear cause. Due to the low Tylenol intake, it is very unlikely to be medication-related. His home psychiatric medications are not known to cause increased liver enzymes. - Order HIV and acute hepatitis tests - Follow-up with PCP Hypertriglyceridemia 07/29/2022 Assessment & Plan (07/29/2022 9:13 AM CDT): Encouraged low sugar diet and regular exercise. Advised starting fish oil supplement 1000 mg BID. Repeat labs in 6-8 weeks. Autism spectrum disorder 10/17/2021 Bleeding internal hemorrhoids 10/17/2021 Rectal bleeding in pediatric patient 10/17/2021 Annual physical exam 07/24/2021 Assessment & Plan (07/24/2021 10:41 AM CDT): Routine lab Hematuria 06/10/2020 Assessment & Plan (06/10/2020 9:30 AM APPLICATION DEVELOPMENT PROJECT MANAGER): Recheck a ua Renal us Other specified abnormal findings of blood chemi stry 04/28/2017 Chronic fatigue 04/21/2017 Depression 04/21/2017 Assessment & Plan (11/12/2023 12:10 PM CDT): Mr. Vivas is a 23yo M with a hx of various diagnoses, admitted for SI. Patient's hx started at a young age with chronic low mood, mood reactivity and anger, chronic SI and multiple SA (none requiring medical intervention). He reports his symptoms to be mostly chronic, with improvement when he is busy. He does not have clear episodes of persistent mood changes. He does not have a hx of irineo. He reports rumination versus pseudopsychosis but no actual AH or delusions. HE has a hx of poor coping skills. This could be related to ASD, versus primary mood disorder. We will assign depression for now but strongly recommend considering ASD. Fair progress - better SI. Participating in unit activity PLAN - continue voluntary admission - plan to discharge tomorrow - Abilify 15mg every day - appreciate SW and medical team recs Assessment & Plan (11/11/2023 10:04 AM CDT): Mr. Vivas is a 23yo M with a hx of various diagnoses, admitted for SI. Patient's hx started at a young age with chronic low mood, mood reactivity and anger, chronic SI and multiple SA (none requiring medical intervention). He reports his symptoms to be mostly chronic, with improvement when he is busy. He does not have clear episodes of persistent mood changes. He does not have a hx of irineo. He reports rumination versus pseudopsychosis but no actual AH or delusions. HE has a hx of poor coping skills. This could be related to ASD, versus primary mood disorder. We will assign depression for now but strongly recommend considering ASD. Fair progress - better SI. Participating in unit activity PLAN - continue voluntary admission - plan to discharge tomorrow - Abilify 15mg every day - appreciate SW and medical team recs Assessment & Plan (11/10/2023 9:47 AM CDT): Mr. Vivas is a 23yo M with a hx of various diagnoses, admitted for SI. Patient's hx started at a young age with chronic low mood, mood reactivity and anger, chronic SI and multiple SA (none requiring medical intervention). He reports his symptoms to be mostly chronic, with improvement when he is busy. He does not have clear episodes of persistent mood changes. He does not have a hx of irineo. He reports rumination versus pseudopsychosis but no actual AH or delusions. HE has a hx of poor coping skills. This could be related to ASD, versus primary mood disorder. We will assign depression for now but strongly recommend considering ASD. Fair progress PLAN - continue voluntary admission - simplify medications -- we will only continue Abilify 10mg every day - appreciate SW and medical team recs Assessment & Plan (11/09/2023 1:05 PM CDT): Mr. Vivas is a 23yo M with a hx of various diagnoses, admitted for SI. Patient's hx started at a young age with chronic low mood, mood reactivity and anger, chronic SI and multiple SA (none requiring medical intervention). He reports his symptoms to be mostly chronic, with improvement when he is busy. He does not have clear episodes of persistent mood changes. He does not have a hx of irineo. He reports rumination versus pseudopsychosis but no actual AH or delusions. HE has a hx of poor coping skills. This could be related to ASD, versus primary mood disorder. We will assign depression for now but strongly recommend considering ASD. Risk assessment: patient had recent SI. Admission is appropriate PLAN - continue voluntary admission - simplify medications -- we will only start Abilify 10mg every day - appreciate SW and medical team recs Gastroesophageal reflux disease without esophagi tis 04/21/2017 Resolved Problems Problem Noted Date Diagnosed Date Resolved Date Schizoaffective disorder, depressive type 11/09/2023 11/09/2023 Suicidal behavior without at tempted self-injury 11/08/2023 11/09/2023 Assessment & Plan (11/09/2023 12:38 PM CDT): As per Psychiatry Urinary tract infectious disease 10/17/2021 11/09/2023 Myalgia 07/24/2021 11/09/2023 Assessment & Plan (07/24/2021 10:43 AM CDT): He abruptly discontinued his Abilify. I recommend restarting this in following up with his psychiatrist. Also going to check a CBC Chem 7 liver function tests sed rate creatinine phosphokinase. Upper respiratory infection 03/17/2021 07/24/2021 Assessment & Plan (03/17/2021 11:01 AM APPLICATION DEVELOPMENT PROJECT MANAGER): Amoxicillin 500 mg t.i.d. for 10 days COVID screen Update 3-4 days on condition Call if worsening Hematochezia 06/10/2020 07/24/2021 Assessment & Plan (06/10/2020 9:29 AM APPLICATION DEVELOPMENT PROJECT MANAGER): Better Sees Dr. 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 Emergency Department [address] [place] [id number] Angel Taylor MD Suicidal ideation (Primary Dx); Depression, unspecified depression type Discharge Disposition: Discharge to psych hospital or psych unit 10/19/2024 3:05 PM CDT - 10/19/2024 11:59 PM CDT Hospital Encounter [facility] [address] [place] [id number] Right knee pain, unspecified chronicity Discharge Disposition: Discharge to home or self care from Last 3 Months Immunizations Immunization Administration Dates Next Due DTaP 07/03/2003, 1,1999,1999,1 05/31/1998 Hep A, Pediatric 03/17/2002,09/13/2001 Hep B, Adolescent or Pediatric 03/08/2000,1998,1999 Hib (HbOC) 09/03/2000,1999,1999 ,1999 IPV 07/03/2003,11/09/2000,1999 ,1999 Influenza, Unspecified 01/31/2022(Deferr ed: Patient Refused),07/24/2021(Deferred: Patient Refused),03/02/2021(Deferred: Patient Refused) MMR 07/03/2003,09/03/2000 Pneumococcal Conjugate PCV 13 09/03/2000, 000,1999 Tdap 11/22/2013 Varicella 02/12/2014,09/03/2000 Surgical History Surgery Date Site/Laterality Comments NO PAST SURGERIES NO PAST SURGERIES Medical History Medical History Date Comments Depression Asperger syndrome Anxiety Family History Medical History Relation Name Comments No Known Problems Father No Known Problems Mother Cancer Mother's Sister No Known Problems Sister Apolonia Relation Name Status Comments Father Alive Mother Alive Mother's Sister Sister Apolonia Alive Social History Tobacco Use Types Packs/Day Years Used Date Smoking Tobacco: Never Smokeless Tobacco: Never Alcohol Use Standard Drinks/Week Comments Never 0 (1 standard drink = 0.6 oz pur e alcohol) [facility] Utilities Answer Date Recorded In the past 12 months has e [employer], gas, oil, or water [employer] threatened to shut off services in your home? No 11/09/2023 Humiliation, Afraid, Rape, and Kick questionnair e Answer Date Recorded Within the last year, have y ou been afraid of your partner or ex-partner? No 11/09/2023 Within the last year, have y ou been humiliated or emotionally abused in other ways by your partner or ex-partner? No Within the last year, have y ou been kicked, hit, slapped, or otherwise physically hurt by your partner or ex-partner? No 11/09/2023 Within the last year, have y ou been raped or forced to have any kind of sexual activity by your partner or ex-partner? No 11/09/2023 Social Connection and Isolation Panel Answer Date Recorded In a typical week, how many times do you talk on the phone with family, friends, or neighbors? More than three times a week 11/09/2023 How often do you get togethe r with friends or relatives? More than three times a week 11/09/2023 How often do you attend chur ch or scientologist services? Never 11/09/2023 Do you belong to any clubs o r organizations such as christian groups, unions, fraternal or athletic groups, or school groups? No 11/09/2023 How often do you attend meet ings of the clubs or organizations you belong to? Never 11/09/2023 Are you , , di vorced, , never , or living with a partner? Never 11/09/2023 AUDIT-C Answer Date Recorded Q1: How often do you have a drink containing alcohol? Never 11/09/2023 Q2: How many drinks containi ng alcohol do you have on a typical day when you are drinking? Patient does not drink Q3: How often do you have si x or more drinks on one occasion? Never 11/09/2023 Overall Financial Resource Strain (CARDIA) Answe r Date Recorded How hard is it for you to pa y for the very basics like food, housing, medical care, and heating? Not hard at all 11/09/2023 PHQ-2 Answer Date Recorded PHQ-2 Total Score (If total score is 3 or more points, staff should administer the PHQ-9) 0 07/29/2022 [facility] - Occupational Stress Questionnaire Answer Date Recorded Do you feel stress - tense, restless, nervous, or anxious, or unable to sleep at night because your mind is troubled all the time - these days? Only a little 11/09/2023 Exercise Vital Sign Answer Date Recorde d On average, how many days pe r week do you engage in moderate to strenuous exercise (like a brisk walk)? Patient declined On average, how many minutes do you engage in exercise at this level? Patient declined 11/09/2023 Hunger Vital Sign Answer Date Recorded Within the past 12 months, y ou worried that your food would run out before you got the money to buy more. Never true 11/09/19 24 Within the past 12 months, t he food you bought just didn't last and you didn't have money to get more. Never true 11/09/2023 PRAPARE - Transportation Answer Date Re corded In the past 12 months, has l ack of transportation kept you from medical appointments or from getting medications? No 01/2024 In the past 12 months, has l ack of transportation kept you from meetings, work, or from getting things needed for daily living? No 11/09/2023 Housing Stability Vital Sign Answer Germain e Recorded In the last 12 months, was t here a time when you were not able to pay the mortgage or rent on time? No 11/09/2023 In the past 12 months, how m any times have you moved where you were living? 1 11/09/2023 At any time in the past 12 m [facility], were you homeless or living in a snf (including now)? No 11/09/2023 Personal Safety Answer Date Recorded Have you ever been in or are you currently in a harmful physical or emotional relationship or is someone making you feel afraid or unsafe? Denies 12/22/2024 Education Answer Date Recorded What is the highest level of school you have completed or the highest degree you have received? Some college, no degree 11/09/2023 Sex and Gender Information Value Date Recorded Sex Assigned at Not on file Legal Sex Male 8:31 PM APPLICATION DEVELOPMENT PROJECT MANAGER Gender Identity Male 03/17/2021 8:24 AM APPLICATION DEVELOPMENT PROJECT MANAGER Sexual Orientation Straight 03/17/2021 8: 24 AM APPLICATION DEVELOPMENT PROJECT MANAGER Obstetrics History Last Filed Vital Signs Vital Sign Reading Time Taken Comments Blood Pressure 108/53 12/22/2024 9:07 PM CDT Pulse 72 12/22/2024 9:07 PM CDT Temperature 36.9 C (98.4 F) 12/22/2024 10:38 AM CDT Respiratory Rate 17 12/22/2024 9:07 PM CDT Oxygen Saturation 94% 12/22/2024 9:07 PM CDT Inhaled Oxygen Concentration - - Weight 108.9 kg (240 lb 1.3 oz) 025 10:38 AM CDT Height 167.6 cm (5' 6) 12/22/2024 10:3 8 AM CDT Body Mass Index 38.75 12/22/2024 10:38 AM CDT Plan of Treatment Health Maintenance Due Date Last Done Comments HPV Vaccines (1 - Male 3-dos e series) 2014 Regular Well Visit/Exam 18-64 07/24/2022 07/24/2021 Depression Screening 07/30/2023 07/29/2022, 03/17/20 21 DTaP/Tdap/Td Vaccine (7 - Td or Tdap) 11/23/2023 11/22/2013, 07/03/2003, 11/09/2000, Additional history exists Covid-19 Vaccine (3 - 2024-2 6 season) 2025 08/09/2020, 07/19/2020 Influenza Vaccine (#1) 2025 Hepatitis B Screening Completed 03/08/2000 , 1999, 1999 Pneumococcal vaccine <65 Completed 001, 03/08/2000, 1999 Varicella Vaccines Completed 02/12/2014, 09/03/2000 Hepatitis C Screening Completed 11/09/2023 Procedures Procedure Name Priority Date/Time Associated Diagnosis Comments LITHIUM LEVEL STAT 12/22/2024 2:10 PM CDT URINALYSIS, MICROSCOPIC ONLY STAT 12/22/2024 2:02 PM CDT DRUGS OF ABUSE SCREEN, URINE WITHOUT CONFIRMATION STAT 12/22/2024 2:02 PM CDT URINALYSIS AND REFLEX TO MICROSCOPIC AND CULTURE STAT 12/22/2024 2:02 PM CDT EGFR STAT 12/22/2024 10:56 AM CDT DIFFERENTIAL AUTO STAT 12/22/2024 10: 56 AM CDT ETHANOL STAT 12/22/2024 10:56 AM CDT THYROID FUNCTION CASCADE STAT 12/22/2024 10:56 AM CDT COMPREHENSIVE METABOLIC PANEL STAT 12/22/2024 10:56 AM CDT CBC WITH AUTO DIFFERENTIAL STAT 12/22/2024 10:56 AM CDT RESPIRATORY PATHOGEN PANEL STAT 12/22/2024 10:56 AM CDT XR KNEE RIGHT 3 VIEWS Schedule Routine, Read Routine (OP Routine) 10/19/2024 3:23 PM CDT Right knee pain, unspecified chronicity HEPATITIS PANEL, ACUTE Routine 11/09/2023 12:44 PM CDT from Last 3 Months or Most Recently Relevant to Health Maintenance Results * (ABNORMAL) [place] level (12/22/2024 2:10 PM CDT) [place] 0.37(L) 0.60 - 1.20 mmol/L Comment: Interpretive Data Acute: 1.00-1.50 Maintenance: 0.50-1.30 Current interpretive data was last revised on 2020. Blood 12/22/2024 2:10 PM CDT 12/22/2024 4:38 PM CDT us Angel Taylor MD LAB BLOOD ORDERABLES F inal Result [facility] [address] [facility] [place], [place] [id number] * (ABNORMAL) Urinalysis reflex to microscopic and culture Urine (12/22/2024 2:02 PM CDT) Color, ur Yellow Yellow Comment:Testing performed by : [address] [address] Clarity, ur Clear Clear NORAH Comment:Testing performed by : [address] [address] Specific gravity, ur 1.015 1.003 - 1.030 NORAH Comment:Testing performed by : [address] [address] pH, urine 6.5 NORAH Comment: Interpretive Data U rine pH is affected by diet, medications, systemic acid-base disturbances, and renal tubular function. pH may affect urinary stone formation. For example, urine pH below 6.0 may help reduce the tendency for calcium phosphate stones and pH greater than 6.0 may reduce the tendency for uric acid stone formation. Source: [facility] [employer] Current Interpretive Data was last revised on 2017 Testing performed by: [address] [address] Protein, ur ql Negative Negative NORAH Comment:Testing performed by : [address] [address] Glucose, ur ql Negative Negative NORAH Comment:Testing performed by : [address] [address] Ketones, ur Negative Negative NORAH Comment:Testing performed by : [address], [place]., [address] Bilirubin, ur Negative Negative NORAH Comment:Testing performed by : [address], [place]., [address] Blood, ur 1+(A) Negative NORAH Comment:Testing performed by : [address], [place]., [address] Urobilinogen, ur <2.0 <2.0 mg/dL NORAH Comment:Testing performed by : [address], [place]., [address] Nitrite, ur Negative Negative NORAH Comment:Testing performed by : [address], [place]., [address] Leukocyte esterase, ur Negative Negative NORAH Comment:Testing performed by : [address], [place]., [address] UA reflex comment Reflex to microscopic UA will be performed. NORAH Comment:Testing performed by : [address], [place]., [address] Urine 12/22/2024 2:02 PM CDT 12/22/2024 2:09 PM CDT us Angel Taylor MD LAB MICROBIOLOGY - GEN ERAL ORDERABLES Final Result [facility] [address] [facility] Department [place] [address] * Drugs of Abuse Screen, Urine without Confirmation (12/22/2024 2:02 PM CDT) Amphetamine, ur Not Detected CutOff 500ng/mL Comment: Interpretive Data - Amphetamines: Samples containing greater than 500 ng/mL d-methamphetamine or other cross-reacting amphetamine compounds are reported as positive. Amphetamine immunoassays are subject to significant false positive rates due to cross-reactivity of non-amphetamine drugs. Confirmatory testing required for definitive results. Current Interpretive Data was last reviewed 2022. Testing performed by: [address], [place]., [address] Barbiturates, ur Not Detected CutOff 200ng/mL [facility] Comment: Interpretive Data - Barbiturates: Samples containing greater than 200 ng/mL secobarbital or other cross-reacting barbiturate compounds are reported as positive. False positive and false negative results are possible. Confirmatory testing required for definitive results. Current Interpretive Data was last reviewed 2022. Testing performed by: [address] [address] Benzodiazepines, ur Not Detected CutOff 100ng/mL [facility] Comment: Interpretive Data - Benzodiazepines: Samples containing greater than 100 ng/mL nordiazepam or other cross-reacting compounds are reported as positive. False positive and false negative results are possible. Confirmatory testing required for definitive results. Current Interpretive Data was last reviewed 2022. Testing performed by: [address] [address] Cannabinoids, ur Not Detected CutOff 50 ng/mL [facility] Comment: Interpretive Data - Cannabinoids: Samples containing greater than 50 ng/mL delta-9 THC -COOH or other cross- reacting compounds are reported as positive. False positive and false negative results are possible. Confirmatory testing required for definitive results. Current Interpretive Data was last reviewed 2022. Testing performed by: [address] [address] Cocaine, ur Not Detected CutOff 150ng/mL [facility] Comment: Interpretive Data - Cocaine: Samples containing greater than 150 ng/mL benzoylecgonine or other cross- reacting compounds are reported as positive. False positive and false negative results are possible. Confirmatory testing required for definitive results. Current Interpretive Data was last reviewed 2022. Testing performed by: [address] [address] Fentanyl, Ur Not Detected Cutoff 1 ng/mL [facility] Comment: Interpretive Data - Fentanyl: Samples containing greater than 1 ng/mL fentanyl or other cross-reacting fentanyl compounds are reported as positive. False positive and false negative results are possible. Confirmatory testing required for definitive results. Current Interpretive Data was last reviewed 2022. Testing performed by: [address] [address] Methadone, ur Not Detected CutOff 300ng/mL NORAH Comment: Interpretive Data - Methadone: Samples containing greater than 300 ng/mL d,l-methadone or other cross-reacting compounds are reported as positive. False positive and false negative results are possible. Confirmatory testing required for definitive results. Current Interpretive Data was last reviewed 2022. Testing performed by: [address] [address] Opiates, ur Not Detected CutOff 300ng/mL NORAH Comment: Interpretive Data - Opiates: Samples containing greater than 300 ng/mL morphine or other cross-reacting compounds are reported as positive. False positive and false negative results are possible. Confirmatory testing required for definitive results. Current Interpretive Data was last reviewed 2022. Testing performed by: [address] [address] Oxycodone, ur Not Detected CutOff 100ng/mL NORAH Comment: Interpretive Data - Oxycodone: Samples containing greater than 100 ng/mL oxycodone or other cross-reacting compounds are reported as positive. False positive and false negative results are possible. Confirmatory testing required for definitive results. Current Interpretive Data was last reviewed 2022. Testing performed by: [address] [address] Phencyclidine, ur Not Detected CutOff 25 ng/mL NORAH Comment: Interpretive Data - Phencyclidine: Samples containing greater than 25 ng/mL phencyclidine or other cross-reacting compounds are reported as positive. False positive and false negative results are possible. Confirmatory testing required for definitive results. Current Interpretive Data was last reviewed 2022. Testing performed by: [address] [address] Urine Creatinine 91 mg/dL NORAH Comment: Interpretive Data Urine Creatinine: < 10 mg/dL is extremely dilute = or > 10 but < 20 mg/dL is dilute = or > 20 mg/dL is normal Current Interpretive Data was last revised on 2017. Testing performed by: [address] [address] Urine 12/22/2024 2:02 PM CDT 12/22/2024 2:09 PM CDT Narrative NORAH - 12/22/2024 2:38 PM CDT Drug of Abuse screening is performed by immunoassay for medical purposes only. This is not to be used for Pain Management purposes. Angel Taylor MD LAB URINE ORDERABLES F inal Result Performing Organization Address City/[facility] Co de Phone Number NORAH [facility] [place] [address] * (ABNORMAL) Urinalysis, microscopic only (12/22/2024 2:02 PM CDT) WBC, ur 0-5 0 - 5 /HPF Comment:Testing performed by : [address] [address] RBC, ur 3-5(A) 0 - 2 /HPF [facility] Comment:Testing performed by : [address] [address] Epithelial cells, squamous, ur 1-5 0 - 5 /HPF NORAH Comment:Testing performed by : [address] [address] Mucous, ur Present(A) NORAH Comment:Testing performed by : [address] [address] Culture Reflex Comment Reflex conditions for urine culture (WBC >10) not met. NORAH Comment:Testing performed by : [address] [address] Urine 12/22/2024 2:02 PM CDT 12/22/2024 2:09 PM CDT Angel Taylor MD LAB URINE ORDERABLES F inal Result Performing Organization Address City/[facility]/ZIP Co de Phone Number NORAH [address] [facility] [place] [address] * eGFR (12/22/2024 10:56 AM CDT) eGFR >90 >=60 mL/min/1. 73 m2 Comment: Interpretive Data Reference Interval Normal >/= 90 mL/min/1.73m2 Mildly decreased* 60 - 89 mL/min/1.73m2 Mildly to moderately decreased 45 - 59 mL/min/1.73m2 Moderately to severely decreased 30 - 44 mL/min/1.73m2 Severely decreased 15 - 29 mL/min/1.73m2 Kidney Failure < 15 mL/min/1.73m2 *Relative to young adult level Estimated glomerular filtration rate is determined by the 2020 CKD-EPI equation recommended by the National Kidney Foundation (A Unifying Approach to GFR Estimation: Recommendations of the NKF-ASK Task Force on Reassessing the Inclusion of Race in Diagnosing Kidney Disease, JASN 2020). The CKD-EPI equation should not be used for patients with unstable renal function and has not been validated in children and those over 70. Current interpretive data was last reviewed 2021. Testing performed by: [address] [address] Blood 12/22/2024 10:5 6 AM CDT 12/22/2024 11:12 AM CDT us Angel Taylor MD LAB BLOOD ORDERABLES F inal Result NORAH [address] [facility] [place] [address] * Differential, auto (12/22/2024 10:56 AM CDT) Neutrophil abs 6.48 1.50 - 6.50 K/cumm Comment:Testing performed by : [address] [address] Imm gran abs 0.08 0.00 - 0.10 K/cumm NORAH ANDREWS Comment:Testing performed by : [address] [address] Lymphocyte abs 3.20 0.80 - 3.30 K/cumm NORAH Comment:Testing performed by : [address] [address] Monocyte abs 0.55 0.20 - 0.80 K/cumm NORAH Comment:Testing performed by : [address] [address] Eosinophil abs 0.15 0.00 - 0.50 K/cumm NORAH Comment:Testing performed by : [address] [address] Basophil abs 0.06 0.00 - 0.10 K/cumm NORAH Comment:Testing performed by : [address] [address] Neutrophil pct 61.6 % [facility] Comment: Interpretive Data Percent cell count reference ranges are not reported, since discordance with absolute values may lead to misinterpretation of CBC data. Current Interpretive Data was last revised on 2017. Testing performed by: [address] [address] Imm gran pct 0.8 % [facility] Comment: Interpretive Data Percent cell count reference ranges are not reported, since discordance with absolute values may lead to misinterpretation of CBC data. Current Interpretive Data was last revised on 2017. Testing performed by: [address] [address] Lymphocyte pct 30.4 % [facility] Comment: Interpretive Data Percent cell count reference ranges are not reported, since discordance with absolute values may lead to misinterpretation of CBC data. Current Interpretive Data was last revised on 2017. Testing performed by: [address] [address] Monocyte pct 5.2 % [facility] Comment: Interpretive Data Percent cell count reference ranges are not reported, since discordance with absolute values may lead to misinterpretation of CBC data. Current Interpretive Data was last revised on 2017. Testing performed by: [address] [address] Eosinophil pct 1.4 % [facility] Comment: Interpretive Data Percent cell count reference ranges are not reported, since discordance with absolute values may lead to misinterpretation of CBC data. Current Interpretive Data was last revised on 2017. Testing performed by: [address] [address] Basophil pct 0.6 % [facility] Comment: Interpretive Data Percent cell count reference ranges are not reported, since discordance with absolute values may lead to misinterpretation of CBC data. Current Interpretive Data was last revised on 2017. Testing performed by: [address] [address] Blood 12/22/2024 10:5 6 AM CDT 12/22/2024 11:12 AM CDT Angel Taylor MD LAB BLOOD ORDERABLES F inal Result Performing Organization Address [facility] Co de Phone Number [address] [place] [place] [address] * Thyroid Function [place] (12/22/2024 10:56 AM CDT) [facility] TSH 3.32 0.30 - 4.20 mcIUnit/mL Comment:Testing performed by : [address] [address] Blood 12/22/2024 10:5 6 AM CDT 12/22/2024 11:12 AM CDT Angel Taylor MD LAB BLOOD ORDERABLES F inal Result Performing Organization Address [facility] Co de Phone Number [address] [address] * Respiratory pathogen panel Nasopharyngeal (12/22/2024 10:56 AM CDT) [facility] Influenza A RNA Not Detected Not Detected Comment:Testing performed by : [facility], [address] [facility] [place] [address] Influenza B RNA Not Detected Not Detected NORAH Comment:Testing performed by : [facility], [address] [facility] [address] RSV RNA Not Detected Not Detected NORAH Comment:Testing performed by : [facility], [address] [facility] [address] COVID-19 RNA Not Detected Not Detected NORAH Comment:Testing performed by : [facility], [address] [facility] [place] [address] Coronavirus 229E RNA Not Detected Not Detected CERNER Comment:Testing performed by : [facility], [address] [place]., [address] Coronavirus HKU1 RNA Not Detected Not Detected CERNER Comment:Testing performed by : [facility], [address] [place]., [address] Coronavirus NL63 RNA Not Detected Not Detected CERNER Comment:Testing performed by : [facility], [address] [place]., [address] Coronavirus OC43 RNA Not Detected Not Detected CERNER Comment:Testing performed by : [facility], [address] [place]., [address] Adenovirus DNA Not Detected Not Detected CERNER Comment:Testing performed by : [facility], [address] [facility] [address] Metapneumovirus RNA Not Detected Not Detected CERNER Comment:Testing performed by : [facility], [address] [place]., [address] Rhinovirus/Enterov irus RNA Not Detected Not Detected CERNER Comment:Testing performed by : [facility], [address] [facility] [address] Parainfluenza 1 RNA Not Detected Not Detected CERNER Comment:Testing performed by : [facility], [address] [facility] [address] Parainfluenza 2 RNA Not Detected Not Detected CERNER Comment:Testing performed by : [facility], [address] [facility] [address] Parainfluenza 3 RNA Not Detected Not Detected CERNER Comment:Testing performed by : [facility], [address] [facility] [address] Parainfluenza 4 RNA Not Detected Not Detected CERNER Comment:Testing performed by : [facility], [address] [place]., [address] B. pertussis DNA Not Detected Not Detected NORAH Comment:Testing performed by : [facility], [address] [place]., [address] B. parapertussis DNA Not Detected Not Detected NORAH Comment:Testing performed by : [facility], [address] [place]., [address] C. pneumoniae DNA Not Detected Not Detected NORAH Comment:Testing performed by : [facility], [address] [place]., [address] M. pneumoniae DNA Not Detected Not Detected NORAH Comment:Testing performed by : [facility], [address] [facility], [address] Nasopharyngeal 12/22/2024 10 :56 AM CDT 12/22/2024 1:26 PM CDT Narrative NORAH - 12/22/2024 2:25 PM CDT Is the Patient experiencing symptoms consistent with COVID?->No Surveillance testing for transplant patient?->No Interpretive Data The [employer] FilmArray Respiratory Panel (RP2.1) assay is a multiplexed real-time PCR based nucleic acid test capable of simultaneous qualitative detection and identification of multiple respiratory viral and bacterial nucleic acids, including SARS Coronavirus 2 (the causative agent of COVID-19). The following bacteria, viruses and virus subtypes can be identified using the FilmArray RP2.1 assay: Bordetella pertussis, Bordetella parapertussis, Chlamydia pneumoniae, Mycoplasma pneumoniae, Adenovirus, SARS Coronavirus 2, seasonal coronaviruses (Coronavirus HKU1, Coronavirus NL63, Coronavirus 229E, and Coronavirus OC43), Influenza A, Influenza A subtype H1, Influenza A subtype H3, Influenza A subtype 2009 H1, Influenza B, Metapneumovirus, Parainfluenza 1, Parainfluenza 2, Parainfluenza 3, Parainfluenza 4, RSV, Rhinovirus/Enterovirus. Due to the genetic similarity between human Rhinovirus and Enterovirus, the FilmArray RP2.1 assay cannot reliably differentiate them. Coronavirus OC43 may cross-react with some isolates of Coronavirus HKU1. A dual positive result may be due to cross-reactivity or may indicate a co- infection. The detection and identification of specific viral and bacterial nucleic acids from individuals exhibiting signs and symptoms of a respiratory infection aids in the diagnosis of respiratory infection if used in conjunction with other clinical and epidemiological information. The results of this test should not be used as the sole basis for diagnosis, treatment, or other management decisions. Negative results in the setting of a respiratory illness may be due to infection with pathogens that are not detected by this test. Positive results do not rule out infection/co-infection with other organisms. The agent(s) detected by the FilmArray RP2.1 may not be the definite cause of disease. Additional testing (lab, imaging, etc.) may be necessary when evaluating a patient with possible respiratory tract infection. The FilmArray RP2.1 assay has FDA clearance for testing of DEMAND MANAGER swabs. The performance of additional specimen types has been assessed by the performing laboratory. The performance characteristics of this assay have been determined by [facility]. Current interpretive data was last revised on 22. us Angel Taylor MD LAB MICROBIOLOGY - GEN ERAL ORDERABLES Final Result NORAH ANDREWS [address] [facility] Department of Laboratories [place], [place] [id number] * (ABNORMAL) CBC with auto differential (12/22/2024 10:56 AM CDT) [facility] WBC 10.52(H) 3.80 - 9.90 K/cumm Comment:Testing performed by : [address] [address] Hgb 16.5 13.0 - 17.5 g/dL NORAH ANDREWS Comment:Testing performed by : [address] [address] Hct 46.7 38.9 - 50.3 % NORAH ANDREWS Comment:Testing performed by : [address] [address] Plt 253 150 - 400 K/cumm NORAH ANDREWS Comment:Testing performed by : [address] [place] [address] MPV 10.9 9.1 - 12.3 fL NORAH ANDREWS Comment:Testing performed by : [address] [address] RBC 5.41 4.30 - 5.80 M/cumm NORAH ANDREWS Comment:Testing performed by : [address] [address] MCV 86.3 81.3 - 96.4 fL NORAH Comment:Testing performed by : [address] [address] MCH 30.5 27.1 - 33.3 pg NORAH Comment:Testing performed by : [address] [address] MCHC 35.3 32.3 - 35.7 g/dL NORAH Comment:Testing performed by : [address], [address] RDW CV 12.5 11.1 - 14.9 % NORAH Comment:Testing performed by : [address], [address] RDW SD 39.1 35.7 - 48.1 fL NORAH Comment:Testing performed by : [address] [address] NRBC abs 0.00 0.00 - 0.01 K/cumm NORAH Comment:Testing performed by : [address] [address] Blood Venous blood specimen / Unknown 12/22/2024 10:56 AM CDT 12/22/2024 11:12 AM CDT us Angel Taylor MD LAB BLOOD ORDERABLES F inal Result NORAH [address] [facility] Department of Laboratories [place], [place] [id number] * Ethanol (12/22/2024 10:56 AM CDT) Ethanol <10 <=10 mg/dL Comment: Interpretive Data Legal limit of intoxication > or = 80 mg/dL Levels > or = 400 mg/dL are potentially TOXIC. Current interpretive data was last revised on 2018. Testing performed by: [address] [address] Blood 12/22/2024 10:5 6 AM CDT 12/22/2024 11:12 AM CDT us Angel Taylor MD LAB BLOOD ORDERABLES F inal Result [facility] [address] [facility] Department [place] [address] * (ABNORMAL) Comprehensive metabolic panel (12/22/2024 10:56 AM CDT) Sodium 138 135 - 145 mmol/L Comment:Testing performed by : [address] [address] Potassium, pl 3.7 3.3 - 4.9 mmol/L NORAH Comment:Testing performed by : [address] [address] Chloride 102 97 - 110 mmol/L NORAH Comment:Testing performed by : [address] [address] CO2 21(L) 22 - 32 mmol/L NORAH Comment:Testing performed by : [address] [address] Anion gap 15 2 - 15 mmol/L NORAH Comment:Testing performed by : [address] [address] BUN 17 6 - 25 mg/dL NORAH Comment:Testing performed by : [address] [address] Creatinine 1.07 0.80 - 1.30 mg/dL NORAH Comment:Testing performed by : [address] [address] Glucose 124 70 - 199 mg/dL NORAH Comment: Interpretive Data Fasting glucose >/= 126 mg/dl is diagnostic for diabetes. Fasting is defined as no caloric intake for at least 8 hours. Fasting glucose between 100 mg/dl to 125 mg/dl is diagnostic of prediabetes. In a patient with classic symptoms of hyperglycemia or hyperglycemic crisis, a random glucose >/= 200 mg/dl is diagnostic for diabetes. In the absence of unequivocal hyperglycemia, results should be confirmed by repeat testing. The classification and Diagnosis of Diabetes Diabetes Care 202; 46: S19-S40. Current interpretive data was last revised 2022. Testing performed by: [address] [address] Calcium 10.1 8.5 - 10.3 mg/dL NORAH Comment:Testing performed by : [address] [address] Bilirubin, total 0.8 0.1 - 1.2 mg/dL NORAH Comment:Testing performed by : [address] [address] Protein, pl 7.5 6.5 - 8.5 g/dL NORAH Comment:Testing performed by : [address] [address] Albumin 4.8 3.5 - 5.0 g/dL NORAH Comment:Testing performed by : [address] [address] Alk phos 67 40 - 130 Units/L NORAH Comment:Testing performed by : [address] [address] ALT 120(H) 7 - 55 Units/L NORAH Comment:Testing performed by : [address] [address] AST 68(H) 10 - 50 Units/L NORAH Comment:Testing performed by : [address] [address] Blood 12/22/2024 10:5 6 AM CDT 12/22/2024 11:12 AM CDT us Agnel Taylor MD LAB BLOOD ORDERABLES F inal Result [facility] [address] [facility] Department of Laboratories [place], [place] [id number] [phone] * XR Knee Right 3 Views (10/19/2024 3:23 PM CDT) Anatomical Region Laterality Modality Lower Extremities, Knee Right Computed Radiography 10/26/2024 12:3 2 PM CDT Narrative 10/26/2024 12:32 PM CDT EXAM DESCRIPTION: 1. XR KNEE RIGHT 3 VIEWS REASON FOR STUDY: m25.561 Pt states Right knee pain. Possible cause of Right knee pain could be from pulling a branch out of the ground pt stated approx 3 weeks ago. Pt states the pain comes and goes but is sharp. Pain when walking down a hill/stairs. No prior surgery to the right knee. FINDINGS: Three views submitted without comparison. No acute fracture. Alignment is normal. The joint spaces are normal. Trace knee effusion. IMPRESSION: 1. Trace right knee effusion. THIS IS AN ELECTRONICALLY VERIFIED FINAL REPORT 10/26/2024 12:32 PM - Electronically signed by Raman Vegas M.D. MF: [email or web address] Report ID: [id number] Reading Location: [id number] Procedure Note Raman Vegas MD - 10/26/2024 EXAM DESCRIPTION: 1. XR KNEE RIGHT 3 VIEWS REASON FOR STUDY: m25.561 Pt states Right knee pain. Possible cause of Right knee pain could be from pulling a branch out of the ground pt stated approx 3 weeks ago. Pt statesthe pain comes and goes but is sharp. Pain when walking down a hill/stairs. No prior surgery to the right knee. FINDINGS: Three views submitted without comparison. No acute fracture. Alignment is normal. The joint spaces are normal.Trace knee effusion. IMPRESSION: 1. Trace right knee effusion. THIS IS AN ELECTRONICALLY VERIFIED FINAL REPORT 10/26/2024 12:32 PM - Electronically signed by Raman Vegas M.D. MF: [email or web address] Report ID: [id number] Reading Location: [id number] us Ricky Veloz DO IMG XR PROCEDURES Final Result * Hepatitis panel, acute Blood (11/09/2023 12:44 PM CDT) Hep A IgM Nonreactive Nonreactive Hep B core IgM Nonreactive Nonreactive [facility] Hep C Ab Nonreactive Nonreactive [facility] Comment:Antibodies to HCV no t detected. Does NOT exclude the possibility of recent exposure to HCV. Current interpretive data was last revised on 22 HepBsAg Nonreactive Nonreactive [facility] Blood 11/09/2023 12:4 4 PM CDT 11/09/2023 7:04 PM CDT us Maurilio Escoto MD LAB MICROBIOLOGY - GENER AL ORDERABLES Final Result [facility] Department [place] [address] from Last 3 Months or Most Recently Relevant to Health Maintenance Insurance [facility] [place] [id number] [facility] [place] [id number] [facility] Advance Directives For more information, please contact: [phone] * Full Code (Latest Code Status on File) Date Activated Date Inactivated Comments 11/09/2023 2:45 AM 11/12/2023 7:42 PM Care Teams Molecular Genetic Pathologist Relationship Specialty Start Date End Date Ricky Veloz DO PCP - General Family Medicine 12/19/19
[2025-01-19 13:53] VITALS: BP 119/75; PULSE 94; RESP 20; TEMP 36.7; O2SAT 98
--- NOTE | 2025-01-19 14:12 | ED.URI ---
HPI - URI/Sore Throat General Chief Complaint: Upper Respiratory Infection Stated Complaint: sinus/n/v Time Seen by Provider: 01/19/25 14:08 Source: patient, family, RN notes reviewed and old records reviewed Mode of arrival: ambulatory Limitations: no limitations History of Present Illness HPI Narrative: 24 year old male accompanied by father with patient stating 3 week duration of cough, sinus drainage and for the past week he has been throwing up daily. Patient reports no fevers, body aches or chills. Father reports that son was in hospital 3 weeks ago for psychiatric medication adjustment and had headache while in there and started taking Mucinex which helped the headache. Father reports that son has continued to have sinus congestion and cough and having emesis daily for the past week due to all of the drainage. Patient reports that he has not had any fevers chills or sweats, denies any diarrhea or stomach pain. Patient reports that he has been taking the Mucinex and also taking either Zyrtec or Maris daily. Patient reports that he has been lying around alot has dishelved appearance. MD elicited complaint: rhinorrhea, nasal congestion and other (emesis) Pertinent past history: other (sinus problems) Onset (ago): week(s) (3 weeks with increased symptoms for 1 week) Severity: moderate Able to tolerate fluids by mouth: Yes Treatments prior to arrival: other (Mucinex, Zyrtec and Maris) Related Data Home Medications ?Medication ?Instructions ?Recorded ?Confirmed ?Last Taken ?Type aripiprazole 20 mg tablet 15 mg PO DAILY 10/21/23 01/19/25 Unknown History atorvastatin 40 mg tablet 40 mg DIRECTED 03/31/24 03/31/24 Unknown History bupropion HCl 150 mg 24 hr tablet, 150 mg PO DIRECTED 03/31/24 01/19/25 Unknown History extended release (Wellbutrin XL) famotidine 20 mg tablet 20 mg DIRECTED 03/31/24 03/31/24 Unknown History lithium carbonate 300 mg 300 mg PO DIRECTED 03/31/24 01/19/25 Unknown History tablet,extended release guaifenesin 600 mg tablet, mg PO 01/19/25 Unknown History extended release 12 hr (Mucus Relief ER) topiramate 25 mg tablet mg 01/19/25 Unknown History trazodone 50 mg tablet mg 01/19/25 Unknown History Allergies Allergy/AdvReac Type Severity Reaction Status Date / Time milk AdvReac Intermediate Gastrointestinal Verified 01/19/25 13:52 Upset Review of Systems Review of Systems: CONSTITUTIONAL: Denies malaise, chills, sweats, or fever. EYES: Denies visual changes, redness, or discharge. ENT: Reports rhinorrhea, congestion, sinus pain, no otalgia and no sore throat. CARDIOVASCULAR: Denies chest pain, palpitations, or edema. RESPIRATORY: Reports no acute cough.? Denies dyspnea. GASTROINTESTINAL: Denies abdominal pain,reports some nausea, vomiting,no diarrhea SKIN: Denies rash or itching. MUSCULOSKELETAL: Denies myalgia. NEUROLOGIC: reports some headache. All systems reviewed & are unremarkable except as noted in HPI and below PMFSH Past Medical History Medical History (Updated 01/21/25 @ 13:05 by Heather Ascencio NP) History of psychiatric treatment Bipolar 1 disorder, mixed Lactose intolerance Bronchitis Anxiety and depression Social History Social History Smoking status: Never smoker Alcohol intake: never Substance use: never Living arrangements: with family Gender identity (if verbalized by the patient): Male Comments At time of signature, agree with nursing past medical, surgical, social and family history. There is no relevant family history pertinent to the presenting complaint Exam Narrative: GENERAL: Well-appearing, well-nourished, and in no acute distress.disheveled appearance HEAD: Normocephalic EYES: PERRLA, conjunctivae clear ENT: Nares clear, turbinates edematous and erythematous, clear discharge, sinus pressure, headache. Mucous membranes moist. TM pearly miller with dull light reflex bilaterally; no tragal tenderness. Oropharynx erythematous without lesions. Tonsils not enlarged and without exudate, no drooling, no hoarseness, no trismus, uvula midline.post nasal drainage NECK: Supple. No lymphadenopathy CHEST: Clear to auscultation, breath sounds equal. No wheezing, rhonchi, rales, or stridor. No respiratory distress, speaks in full sentences.no acute cough SAO2 98% on room air HEART: Regular rate and rhythm. No murmur heard. SKIN: Warm, dry, no rash. NEURO: Alert and oriented x3. PSYCH: Normal mood and affect Course Course Emergency Course: Patient is aware of diagnosis, understands and agrees to treatment plan.? Anticipatory guidance given.? Patient agrees to follow-up as directed and is aware of reasons to seek care at the emergency department. Portions of this record may have been created with voice recognition software Level of Care: Express Care Visit Vital Signs Vital signs: Vital Signs Temperature 36.7 C 01/19/25 13:53 Pulse Rate 94 01/19/25 13:53 Respiratory Rate 20 01/19/25 13:53 Blood Pressure 119/75 01/19/25 13:53 Pulse Oximetry 98 01/19/25 13:53 Oxygen Delivery Room Air 01/19/25 13:53 Temperature 36.7 C 01/19/25 13:53 Pulse Rate 94 01/19/25 13:53 Respiratory Rate 01/19/25 13:53 Blood Pressure 119/75 01/19/25 13:53 Pulse Oximetry 98 01/19/25 13:53 Oxygen Delivery Room Air 01/19/25 13:53 reviewed MDM - URI/Sore Throat MDM Narrative Medical decision making narrative: Differential diagnosis considered: Katz virus, strep pharyngitis, allergic rhinitis, upper respiratory tract infection, sinusitis, rhinosinusitis, nasopharyngitis. viral pharyngitis, otitis media, otitis externa, pneumonia, bronchitis, viral cough syndrome, viral syndrome, and influenza.? Exam findings show no acute concerns or changes; patient is non-toxic appearing and is in no distress.? Patient is appropriate for outpatient treatment and follow-up. Differential Diagnosis Differential diagnosis: Likely upper respiratory infection, sinusitis and other (nausea and vomiting ) Medical Records Attestation: I reviewed the patient's medical records. Lab Data Attestation: I reviewed the patient's lab results. Critical Care Time Critical Care Time Critical Care Time: No Discharge Plan Discharge Clinical Impression: Sinusitis Qualifiers: Sinusitis location: pansinusitis Chronicity: acute Recurrence: not specified as recurrent Qualified Code(s): J01.40 - Acute pansinusitis, unspecified Nausea and vomiting Qualifiers: Vomiting type: unspecified Qualified Code(s): R11.2 - Nausea with vomiting, unspecified Patient Disposition: Home Condition: Stable Instructions: Antibiotic Form, Sinusitis (ED), Acute Nausea and Vomiting (ED) Additional Instructions: Increase fluids especially juices and water [id number] cough and cold medicine of your choice for your symptoms Zyrtec Claritin or Maris daily may include plain Sudafed in a.m. Tylenol or ibuprofen for any fever pain Continue Mucinex daily heat to the face 20-30 minutes 4-6 times a day for pain Salt water gargles, throat lozenges or throat sprays as desired Antibiotic as directed--finished the medication Zofran for nausea vomiting If your symptoms persist, change or worsen significantly before you can contact your personal physician then please, without delay, go to the emergency department for further evaluation. Follow-up with PCP in 7-10 days or sooner if needed Patient Language: Jamaican Prescriptions: New ondansetron 4 mg tablet,disintegrating 4 mg PO Q6H PRN (Reason: nausea and vomiting) Qty: 20 0RF Rx Instructions: for nausea and vomiting azithromycin 250 mg tablet See Rx Instructions .ROUTE .COMPLEX Qty: 6 0RF Rx Instructions: For 250 mg dose pack: take 500 mg today (day 1), then 250 mg for 4 days (days 2-5) No Action atorvastatin 40 mg tablet 40 mg DIRECTED lithium carbonate 300 mg tablet extended release 300 mg PO DIRECTED famotidine 20 mg tablet 20 mg DIRECTED bupropion HCl [Wellbutrin XL] 150 mg tablet extended release 24 hr 150 mg PO DIRECTED aripiprazole 20 mg tablet 15 mg PO DAILY trazodone 50 mg tablet topiramate 25 mg tablet guaifenesin [Mucus Relief ER] 600 mg tablet extended release 12hr PO Follow-up/Referrals: Roselia,Ricky Burgos MD [Primary Care Provider] Time of Disposition: 14:30 Quality [place] Coma Scale Eyes: Open Verbal: Oriented and Alert Motor: Follows Commands [place] Coma Total Score: 15
== END 2025-01-19 14:37 | disposition home or self-care (01) ==
PROVIDERS: Emergency Provider Registered Nurse; PCP Family Medicine
DX: J01.40 Acute pansinusitis, unspecified (principal); R11.2 Nausea with vomiting, unspecified; F31.9 Bipolar disorder, unspecified; F41.9 Anxiety disorder, unspecified
CPT/HCPCS: 99213; G0463